=== PATIENT | female | born 1960 | race Caucasian/White ===

== ENCOUNTER 2017-08-07 06:54 | Day surgery (SDC) | payer OTHER ==
[~2017-08-07] VITALS: Ht 157.5 cm; Wt 115.2 kg
[~2017-08-07 06:54] MED LIST: ALBU.083IS IH; ASCO500 PO; BUDE10.22 INH; CHOL10002 PO; ESCI10 PO; FISH OIL 1,001000 MG PO; METO50ER PO; PANT40 PO; SIMV5 PO; TRIPLE MAGNESI400 MG PO; ZESTORETIC 20-121 EA PO
== END 2017-08-07 22:38 | disposition home or self-care (01) ==
LOC: ORSCMMR 06:54 → ORD 08:30 → ORSCMMR 22:38
PROVIDERS: Surgery
PROC: 0DBN8ZX Excision of Sigmoid Colon, Via Natural or Artificial Opening Endoscopic, Diagnostic (ICD-10-PCS; principal; 2017-08-07 08:30)
DX: R19.4 Change in bowel habit (principal); K58.9 Irritable bowel syndrome, unspecified; I10 Essential (primary) hypertension; J44.9 Chronic obstructive pulmonary disease, unspecified; E78.5 Hyperlipidemia, unspecified; F17.210 Nicotine dependence, cigarettes, uncomplicated; E66.01 Morbid (severe) obesity due to excess calories; Z68.42 Body mass index [BMI] 45.0-49.9, adult; Z79.899 Other long term (current) drug therapy
CPT/HCPCS: 88305; J7120

== ENCOUNTER → 2019-02-17 | Outpatient (CLI) | payer OTHER | END | disposition home or self-care (01) | LOC: LAB SHORT 13:48 → LAB EV 13:48 | DX: N75.0 Cyst of Bartholin's gland (principal) | CPT/HCPCS: 87070; 87075; 87205 ==

== ENCOUNTER → 2020-08-15 | Outpatient (CLI) | payer OTHER ==
[2020-08-16 17:07] LABS: HPV 16 Negative (Negative); HPV 18 Negative (Negative); HPV OTHER HR TYPES Negative (Negative)
== END | disposition home or self-care (01) ==
LOC: LAB SHORT 16:13
PROVIDERS: Obstetrics & Gynecology
DX: Z12.4 Encounter for screening for malignant neoplasm of cervix (principal)
CPT/HCPCS: 87624; G0123

== ENCOUNTER 2022-11-17 10:02 | Day surgery (SDC) | payer OTHER | END 2022-11-28 22:44 | disposition home or self-care (01) | LOC: MOI US 10:02 | DX: C50.012 Malignant neoplasm of nipple and areola, left female breast (principal) | CPT/HCPCS: 19285; 77065; A4648 ==

== ENCOUNTER 2022-11-19 08:17 | Day surgery (SDC) | payer OTHER ==
[2022-11-19] VITALS (9 sets, daily range): BP systolic 97–118; BP diastolic 54–83
[~2022-11-19] VITALS: Ht 157.5 cm; Wt 115.7 kg
--- NOTE | 2022-11-19 10:00 | NUR ---
Patient up to Ambulate independently. Gait steady. Surgical site prepped with 2% Chlorhexidine cloth wipe. History, Chart, Medications and Allergies reviewed before start of procedure. Lungs clear T/O to Auscultation. Patient confirms NPO status and agrees with scheduled surgery. Patient States Post-Procedure ride home has been arranged.
[2022-11-19 10:51] LABS: Bun/Creatinine Ratio 16.2 (12.0-20.0); Calcium, Blood 8.4 mg/dL (8.5-10.1); Creatinine, Blood 1.05 mg/dL (0.40-1.00); Potassium, Blood 3.4 mmol/L (3.5-5.5)
--- NOTE | 2022-11-19 14:39 | NUR ---
Discharge instructions reviewed with patient. Patient verbalizes understanding. Copy given to patient to take home. Dressing to procedure site clean, dry, intact with no visible drainage, bruising noted. Patient States Post-Procedure ride home has been arranged. Discharged via wheelchair to private car for ride home.
== END 2022-11-19 14:39 | disposition home or self-care (01) ==
LOC: NM 08:17 → ORSCMMR 08:17 → NM 09:00 → ORD 10:45 → ORSCMMR 14:35 → NM 14:35 → ORSCMMR 11-23 22:54 → NM 11-23 22:54 → ORSCMMR 11-25 23:10
PROVIDERS: Anesthesiology; Surgery
PROC: 0HBU0ZZ Excision of Left Breast, Open Approach (ICD-10-PCS; principal; 2022-11-19 10:45)
PROC: 07B60ZX Excision of Left Axillary Lymphatic, Open Approach, Diagnostic (ICD-10-PCS; principal; 2022-11-19 10:45)
DX: C50.012 Malignant neoplasm of nipple and areola, left female breast (principal); C77.3 Secondary and unspecified malignant neoplasm of axilla and upper limb lymph nodes; I10 Essential (primary) hypertension; K21.9 Gastro-esophageal reflux disease without esophagitis; J44.9 Chronic obstructive pulmonary disease, unspecified; E78.5 Hyperlipidemia, unspecified; F17.210 Nicotine dependence, cigarettes, uncomplicated; E66.01 Morbid (severe) obesity due to excess calories; Z68.42 Body mass index [BMI] 45.0-49.9, adult; Z79.899 Other long term (current) drug therapy
CPT/HCPCS: 36415; 38792; 80048; 88307; A9270; A9520; J0690; J1100; J2250; J2405; J2704; J2765; J3010; J7120; Q9968

== ENCOUNTER → 2023-08-11 | Outpatient (CLI) | payer OTHER ==
[2023-08-11 16:21] LABS: BASOPHILS ABSOLUTE AUTO 0.02 K/mm3 (0.00-0.23); BASOPHILS PERCENT AUTO 0 % (0-2); EOSINOPHILS ABSOLUTE AUTO 0.09 K/mm3 (0.00-0.68); EOSINOPHILS PERCENT AUTO 2 % (0-6); Hematocrit 40.6 % (33.0-51.0); Hemoglobin 14.1 g/dL (11.5-16.0); IMMATURE GRAN PERCENT AUTO 0 % (0-1); LYMPHOCYTES ABSOLUTE AUTO 0.93 K/mm3 (0.84-5.20); LYMPHOCYTES PERCENT AUTO 18 % (21-46); MONOCYTES ABSOLUTE AUTO 0.24 K/mm3 (0.16-1.47); MONOCYTES PERCENT AUTO 5 % (4-13); Mean Corpuscular HGB 34.2 pg (26.0-34.0); Mean Corpuscular HGB Conc 34.7 g/dL (31.5-36.5); Mean Corpuscular Volume 99 fL (80-100); Mean Platelet Volume 10.2 fL (9.1-12.4); NEUTROPHILS ABSOLUTE AUTO 3.99 K/mm3 (1.96-9.15); NEUTROPHILS PERCENT AUTO 76 % (41-73); Platelet Count 276 K/mm3 (150-400); RDW Coefficient Variation 13.6 % (11.7-14.2); RDW Standard Deviation 49.6 fL (35.1-46.3); Red Blood Cell Count 4.12 M/mm3 (3.80-5.20); White Blood Cell Count 5.27 K/mm3 (4.00-11.30)
[2023-08-11 16:41] LABS: Albumin, Blood 3.8 g/dL (3.4-5.0); Bilirubin, Total 0.4 mg/dL (0.1-1.0); Calcium, Blood 9.4 mg/dL (8.5-10.1); Creatinine, Blood 1.27 mg/dL (0.40-1.00); Globulin, Blood 3.7 g/dL (2.2-4.0); Magnesium, Blood 1.8 mg/dL (1.6-2.4); Thyroid Stimulating Hormone 1.825 uIU/mL (0.360-4.800); Total Protein, Blood 7.5 g/dL (6.4-8.2)
== END | disposition home or self-care (01) ==
LOC: LAB SHORT 16:15 → LAB 16:15
PROVIDERS: Physician Assistant Medical
DX: I48.91 Unspecified atrial fibrillation (principal)
CPT/HCPCS: 80053; 83735; 84443; 84484; 85025

== ENCOUNTER 2024-05-26 11:43 | Day surgery (SDC) | payer OTHER ==
[~2024-05-26] VITALS: Ht 157.5 cm; Wt 105.4 kg
[2024-05-26] MEDS ORDERED: XARELTO20 MG (12:03)
[2024-05-26] MEDS ORDERED: Lactated Ringer's 1,000 ML IV ONE ×2 (12:56→12:57)
[2024-05-26] MEDS ORDERED: propofoL 50 ML IV ONE ×2 (12:56→13:24)
[2024-05-26 14:18] VITALS: BP 114/89
--- NOTE | 2024-05-26 14:22 | NUR ---
05/26/24 1422 Amy Caldera RN INFORMED CHIN GARCIA THAT IV INFILTRATED IN RIGHT AC IN PROCEDURE AND WAS BRUISED WRAPPED WITH GAUZE AND COBAN. PUFFINESS NOTED AROUND EDGES SO CHIN GARCIA WRAPPED A WARM PACK AROUND SITE WHILE DOING D/C INSTRUCTIONS. REMOVED HOT PACK TO LET PATIENT GET DRESSED AND PUFFINESS HAD SUBSIDED. RN INFORMED PT TO WRAP A HEATING PAD AROUND SITE FOR ABOUT AN HOUR UPON GETTING HOME TO DISSIPATE THE REMAINING INFILTRATION IN HER AC OF RIGHT ARM. PT DID NOT COMPLAIN OF PAIN AT ALL.
== END 2024-05-26 14:00 | disposition home or self-care (01) ==
LOC: ORSCSDS 11:43
PROVIDERS: Surgery
PROC: 0DBN8ZX Excision of Sigmoid Colon, Via Natural or Artificial Opening Endoscopic, Diagnostic (ICD-10-PCS; principal; 2024-05-26 13:00)
PROC: 0DBK8ZX Excision of Ascending Colon, Via Natural or Artificial Opening Endoscopic, Diagnostic (ICD-10-PCS; principal; 2024-05-26 13:00)
PROC: 0DBL8ZX Excision of Transverse Colon, Via Natural or Artificial Opening Endoscopic, Diagnostic (ICD-10-PCS; principal; 2024-05-26 13:00)
DX: R19.4 Change in bowel habit (principal); Z86.0101 Personal history of adenomatous and serrated colon polyps; D12.2 Benign neoplasm of ascending colon; D12.3 Benign neoplasm of transverse colon; D12.5 Benign neoplasm of sigmoid colon; E66.01 Morbid (severe) obesity due to excess calories; Z68.41 Body mass index [BMI] 40.0-44.9, adult; I10 Essential (primary) hypertension; F17.210 Nicotine dependence, cigarettes, uncomplicated; J44.89 Other specified chronic obstructive pulmonary disease; K21.9 Gastro-esophageal reflux disease without esophagitis; E78.5 Hyperlipidemia, unspecified; Z79.899 Other long term (current) drug therapy; I48.91 Unspecified atrial fibrillation; Z79.01 Long term (current) use of anticoagulants; Z85.3 Personal history of malignant neoplasm of breast
CPT/HCPCS: 88305; J2704; J7120